=== PATIENT | female | born 1935 | race Caucasian/White ===

== ENCOUNTER 2019-11-19 20:51 | Observation (INO) ==
[2019-11-19] MEDS ORDERED: 0.9 % Sodium Chloride 1,000 ML IVC SCH (21:00)
[2019-11-19] MEDS ORDERED: Ondansetron 4 MG/2 ML VIAL IVP ONE (21:00)
[2019-11-19 21:23] LABS: Basophils # 0.1 K/mcL (0.0-0.2); Basophils % 0.7 %; Eosinophils # 0.2 K/mcL (0.0-0.6); Eosinophils % 2.5 %; Hemoglobin 10.9 g/dL (11.5-15.4); Immature Granulocytes % 0.4 % (0-4); Lymphocytes # 1.6 K/mcL (0.6-4.6); Mean Corpuscular Hemoglobin 31.7 pg (28.0-33.3); Mean Corpuscular Volume 95.9 fL (83.0-100.0); Mean Platelet Volume 8.7 fL (9.4-12.4); Monocytes # 0.9 K/mcL (0.0-1.3); Monocytes % 12.1 %; Neutrophils # 4.7 K/mcL (1.6-8.9); Platelet Count 211 K/mcL (140-400); Red Blood Count 3.44 M/mcL (3.82-4.97); Red Cell Distribution Width 14.8 % (11.5-14.5); Segmented Neutrophils % 63.3 %; White Blood Count 7.5 K/mcL (4.3-11.1)
[2019-11-19 21:35] LABS: Bilirubin,Urine Negative (Negative); Blood,Urine Small (Negative); Clarity,Urine Cloudy (Clear); Color,Urine Yellow (Yellow); Glucose,Urine (UA) Normal (Normal); Ketones,Urine Trace mg/dL (Negative); Leukocyte Esterase,Urine Moderate (Negative); Nitrite,Urine Negative (Negative); Protein,Urine >=300 mg/dL (Neg-Trace); Specific Gravity,Urine 1.025 (1.010-1.025); Urobilinogen,Urine Normal (Normal)
[2019-11-19 21:38] LABS: Prothrombin Time 11.9 Seconds (9.4-12.1)
[2019-11-19 21:41] LABS: Bacteria,Urine Few per hpf (None-Few); Squamous Epithelial Cell,Urine Few per hpf (None-Few); WBC,Urine 30-50 per hpf (0-3)
[2019-11-19 21:47] LABS: Alanine Aminotransferase 14 Units/L (7-52); Albumin 2.9 g/dL (3.5-5.7); Alkaline Phosphatase 108 Units/L (34-104); Aspartate Amino Transferase 17 Units/L (13-39); BUN/Creatinine Ratio 31 (6-26); Bilirubin,Total 0.3 mg/dL (0.3-1.0); Blood Urea Nitrogen 24 mg/dL (8-23); Calcium 8.2 mg/dL (8.6-10.3); Carbon Dioxide 32 mEq/L (23-29); Chloride 92 mEq/L (98-107); Globulin 2.9 g/dL (2.4-3.5); Glucose 199 mg/dL (70-105); Osmolality,Calculated 284 (280-300); Potassium 3.8 mEq/L (3.5-5.1); Sodium 132 mEq/L (136-145); Total Protein 5.8 g/dL (6.4-8.9); eGFR For African Americans > 60 (> 60); eGFR For Non-African Americans > 60 (> 60)
[2019-11-20 01:27] LABS: Adenovirus Not Detected (Not Detect); Bordetella Pertussis Not Detected (Not Detect); Chlamydophila pneumoniae Not Detected (Not Detect); Coronavirus 229E Not Detected (Not Detect); Coronavirus HKU1 Not Detected (Not Detect); Coronavirus NL63 Not Detected (Not Detect); Coronavirus OC43 Not Detected (Not Detect); Human Metapneumovirus Not Detected (Not Detect); Human Rhinovirus/Enterovirus Not Detected (Not Detect); Influenza A Subtype 2009 H1 Not Detected (Not Detect); Influenza B Not Detected (Not Detect); Mycoplasma pneumoniae Not Detected (Not Detect); Parainfluenza Virus 1 Not Detected (Not Detect); Parainfluenza Virus 2 Not Detected (Not Detect); Parainfluenza Virus 3 Not Detected (Not Detect); Parainfluenza Virus 4 Not Detected (Not Detect); Respiratory Syncytial Virus Not Detected (Not Detect); SARS-CoV-2 Not Detected (Not Detect)
[2019-11-20] MEDS ORDERED: Naloxone 0.4 MG/ML INJ IVP PRN (02:23)
[2019-11-20] MEDS ORDERED: *HR* HYDROcodone/Acet 5/325 mg TABLET PO PRN (02:23)
[2019-11-20] MEDS ORDERED: Ondansetron 4 MG/2 ML VIAL IVP PRN (02:23)
[2019-11-20] MEDS ORDERED: Scopolamine Patch 1.5 MG PATCH.TD72 TD SCH (06:00)
[2019-11-20 07:25] LABS: Basophils # 0.1 K/mcL (0.0-0.2); Basophils % 0.9 %; Eosinophils # 0.4 K/mcL (0.0-0.6); Eosinophils % 5.6 %; Hematocrit 32.2 % (35.3-44.9); Hemoglobin 10.5 g/dL (11.5-15.4); Immature Granulocytes % 0.6 % (0-4); Lymphocytes # 1.9 K/mcL (0.6-4.6); Lymphocytes % 28.1 %; Mean Corpuscular HGB Conc 32.6 g/dL (31.6-35.5); Mean Corpuscular Hemoglobin 31.3 pg (28.0-33.3); Mean Corpuscular Volume 96.1 fL (83.0-100.0); Mean Platelet Volume 8.8 fL (9.4-12.4); Monocytes % 14.4 %; Neutrophils # 3.3 K/mcL (1.6-8.9); Platelet Count 204 K/mcL (140-400); Red Blood Count 3.35 M/mcL (3.82-4.97); Red Cell Distribution Width 14.6 % (11.5-14.5); Segmented Neutrophils % 50.4 %; White Blood Count 6.6 K/mcL (4.3-11.1)
[2019-11-20] MEDS: 0.9 % Sodium Chloride 1,000 ML IVC SCH ×4 (07:33→23:35)
[2019-11-20 07:38] LABS: BUN/Creatinine Ratio 31 (6-26); Blood Urea Nitrogen 19 mg/dL (8-23); Calcium 7.7 mg/dL (8.6-10.3); Carbon Dioxide 33 mEq/L (23-29); Chloride 98 mEq/L (98-107); Glucose 91 mg/dL (70-105); Osmolality,Calculated 286 (280-300); Sodium 137 mEq/L (136-145); eGFR For African Americans > 60 (> 60); eGFR For Non-African Americans > 60 (> 60)
[2019-11-20] MEDS ORDERED: cefTRIAXone 1,000 MG in Water for inj. (sterile) 10 ML IVP SCH (08:00)
[2019-11-20] MEDS: Aspirin 81 MG TAB.CHEW PO SCH (08:56)
[2019-11-20] MEDS: Sennosides/Docusate Sodium TABLET PO SCH ×2 (08:56→09:02)
[2019-11-20] MEDS: Artificial Tears SOLN 15 ML BOTTLE LEFT EYE SCH ×10 (08:56→23:33)
[2019-11-20] MEDS: Gabapentin 100 MG CAPSULE PO SCH ×3 (08:57→21:12)
[2019-11-20] MEDS: Mirtazapine 15 MG TABLET PO SCH (08:57)
[2019-11-20] MEDS: lisinopriL 10 MG TABLET PO SCH (08:57)
[2019-11-20] MEDS: amLODIPine 5 MG TABLET PO SCH (08:57)
[2019-11-20] MEDS: Lacri-Lube 3.5 GM TUBE LEFT EYE SCH (17:16)
[2019-11-20] MEDS: cefTRIAXone 1,000 MG in Water for inj. (sterile) 10 ML IVP SCH (21:12)
[2019-11-21] MEDS: Artificial Tears SOLN 15 ML BOTTLE LEFT EYE SCH ×7 (04:15→16:48)
[2019-11-21] MEDS: 0.9 % Sodium Chloride 1,000 ML IVC SCH (07:40)
[2019-11-21] MEDS: Gabapentin 100 MG CAPSULE PO SCH ×3 (09:09→21:05)
[2019-11-21] MEDS: Mirtazapine 15 MG TABLET PO SCH (09:09)
[2019-11-21] MEDS: Aspirin 81 MG TAB.CHEW PO SCH (09:09)
[2019-11-21] MEDS: lisinopriL 10 MG TABLET PO SCH (09:10)
[2019-11-21] MEDS: Acetaminophen 325 MG TABLET PO PRN ×2 (09:10→21:05)
[2019-11-21] MEDS: amLODIPine 5 MG TABLET PO SCH (09:10)
[2019-11-21] MEDS: Sennosides/Docusate Sodium TABLET PO SCH (09:11)
[2019-11-21] MEDS: Lacri-Lube 3.5 GM TUBE LEFT EYE SCH (16:48)
[2019-11-21] MEDS ORDERED: Artificial Tears SOLN 15 ML BOTTLE LEFT EYE PRN (18:08)
[2019-11-21] MEDS: cefTRIAXone 1,000 MG in Water for inj. (sterile) 10 ML IVP SCH (21:06)
[2019-11-22 07:20] VITALS: BP 139/71
[2019-11-22 08:12] LABS: Hematocrit 32.9 % (35.3-44.9); Hemoglobin 10.7 g/dL (11.5-15.4); Mean Corpuscular HGB Conc 32.5 g/dL (31.6-35.5); Mean Corpuscular Volume 95.4 fL (83.0-100.0); Mean Platelet Volume 8.6 fL (9.4-12.4); Platelet Count 186 K/mcL (140-400); Red Blood Count 3.45 M/mcL (3.82-4.97); Red Cell Distribution Width 14.6 % (11.5-14.5); White Blood Count 8.1 K/mcL (4.3-11.1)
[2019-11-22] MEDS: Mirtazapine 15 MG TABLET PO SCH (08:30)
[2019-11-22] MEDS: Aspirin 81 MG TAB.CHEW PO SCH (08:31)
[2019-11-22] MEDS: Gabapentin 100 MG CAPSULE PO SCH (08:31)
[2019-11-22] MEDS: lisinopriL 10 MG TABLET PO SCH (08:31)
[2019-11-22] MEDS: Sennosides/Docusate Sodium TABLET PO SCH (08:31)
[2019-11-22] MEDS: amLODIPine 5 MG TABLET PO SCH (08:31)
[2019-11-22 08:37] LABS: BUN/Creatinine Ratio 16 (6-26); Blood Urea Nitrogen 6 mg/dL (8-23); Calcium 7.9 mg/dL (8.6-10.3); Carbon Dioxide 27 mEq/L (23-29); Chloride 99 mEq/L (98-107); Glucose 84 mg/dL (70-105); Osmolality,Calculated 275 (280-300); Potassium 3.8 mEq/L (3.5-5.1); Sodium 134 mEq/L (136-145); eGFR For African Americans > 60 (> 60); eGFR For Non-African Americans > 60 (> 60)
== END 2019-11-22 13:39 ==
LOC: EMEROOPIK 20:51 → INPPIK 20:51
PROVIDERS: ADMIT Family Medicine; ATTEND Family Medicine